=== PATIENT | female | born 1975 | race Caucasian/White ===

== ENCOUNTER 2020-06-04 01:11 | Emergency (ER) | payer SELFPAY ==
[~2020-06-04] VITALS: Ht 157.5 cm; Wt 95.3 kg
--- NOTE | 2020-06-04 01:12 | NUR ---
PT AAOX4. AMBULATORY WITH STEADY GAIT. C/O RECENTLY DC FROM [facility] ER, DX UTI, C/O BACK PAIN AROUND THE SPINE AREA. PLACED IN BED 1 ON MONITOR AND PULSE OX. VSS.
[2020-06-04] MEDS ORDERED: HYDROMORPHONE 1 MG/1 ML DISP.SYRIN ONE (01:57)
[2020-06-04] MEDS ORDERED: HYDROMORPHONE 1 MG/1 ML DISP.SYRIN IM ONE (02:00)
--- NOTE | 2020-06-04 02:00 | NUR ---
RAD AT BED SIDE
[2020-06-04] MEDS ORDERED: HYDR-3976 GT (02:14)
--- NOTE | 2020-06-04 05:31 | NUR ---
Patient discharged to home in stable condition. Written and verbal after care instructions given. Patient verbalizes understanding of instruction and RX. Pt told to follow up with PMD.
[2020-06-04 05:33] VITALS: BP 115/73
== END 2020-06-04 05:34 | disposition home or self-care (01) ==
LOC: ER 01:18
DX: M54.5 Low back pain (principal); G89.29 Other chronic pain
CPT/HCPCS: 72110; 96372; 99283; J1170

== ENCOUNTER 2021-03-20 15:24 | Emergency (ER) | payer SELFPAY ==
[~2021-03-20] VITALS: Ht 152.4 cm; Wt 86.2 kg
[~2021-03-20 15:24] MED LIST: HYDR-3976 GT
--- NOTE | 2021-03-20 15:40 | NUR ---
PT BIBSELF FROM HOME C/O BACK PAIN SINCE LAST NIGHT. PT DENIES N/V/D OR DIZZINESS. PT A/OX4. TOLERATING R/A WELL WITH NO SOB.
--- NOTE | 2021-03-20 15:51 | NUR ---
DR BORREGO AT PT'S BEDSIDE
[2021-03-20] MEDS ORDERED: MORPHINE SULFATE INJ 2 MG/ML DISP.SYRIN IV ONE (16:30)
[2021-03-20] MEDS ORDERED: MORPHINE SULFATE INJ 2 MG/ML DISP.SYRIN ONE (16:33)
--- NOTE | 2021-03-20 16:44 | NUR ---
RFA #20G S/L PATENT AND INTACT. ADMINISTERED MORPHINE 2MG IVP ORDERED FOR PAIN
--- NOTE | 2021-03-20 16:45 | NUR ---
PT TAKEN TO CT VIA [facility]
[2021-03-20 18:16] VITALS: BP 118/87
--- NOTE | 2021-03-20 18:16 | NUR ---
The patient is alert and oriented x4. Denies pain. In room air and denies SOB. Respiration regular and unlabored. IV removed. Catheter intact and site benign. Pressure and 4x4 applied to site. No bleeding noted.Patient discharged to home in stable condition. Written and verbal after care instructions given. Patient verbalizes understanding of instruction.
== END 2021-03-20 18:17 | disposition home or self-care (01) ==
LOC: ER 15:26
DX: G89.29 Other chronic pain (principal); M54.9 Dorsalgia, unspecified; R42 Dizziness and giddiness
CPT/HCPCS: 72131; 96374; 99284; J2270

== ENCOUNTER 2021-11-27 17:12 | Emergency (ER) | payer SELFPAY ==
[~2021-11-27] VITALS: Ht 157.5 cm; Wt 81.6 kg
[2021-11-27 17:15] VITALS: BP 176/92
== END 2021-11-27 18:18 | disposition home or self-care (01) ==
LOC: ER 17:17
DX: G89.29 Other chronic pain (principal); M54.50 Low back pain, unspecified

== ENCOUNTER 2023-12-06 01:11 | Emergency (ER) | payer MEDICAID ==
[~2023-12-06] VITALS: Ht 154.9 cm; Wt 70.8 kg
[2023-12-06 02:10] VITALS: BP 154/94; TEMP 98; O2SAT 97
[2023-12-06] MEDS ORDERED: KETOROLAC TROMETHAMINE INJ 30 MG/ML VIAL ONE (03:16)
[2023-12-06] MEDS: KETOROLAC TROMETHAMINE INJ 30 MG/ML VIAL IV ONE (03:19)
== END 2023-12-06 04:20 | disposition left against medical advice (07) ==
LOC: ER 01:14
DX: S20.212A Contusion of left front wall of thorax, initial encounter (principal); M25.461 Effusion, right knee; M25.561 Pain in right knee; I10 Essential (primary) hypertension; V43.92XA Unspecified car occupant injured in collision with other type car in traffic accident, initial encounter; Y93.89 Activity, other specified; Y92.488 Other paved roadways as the place of occurrence of the external cause; Y99.8 Other external cause status
CPT/HCPCS: 99283; 96374; J1885

== ENCOUNTER 2024-04-01 19:20 | Emergency (ER) | payer MEDICAID, OTHER ==
[~2024-04-01] VITALS: Ht 154.9 cm; Wt 79.4 kg
[2024-04-01 21:18] VITALS: TEMP 98.5
[2024-04-01 21:41] LABS: BASOPHILS # (AUTO) 0.1 K/uL (0.0-0.2); BASOPHILS % (AUTO) 0.9 % (0.0-2.0); EOSINOPHILS # (AUTO) 0.1 K/uL (0.0-0.7); EOSINOPHILS % (AUTO) 0.8 % (0.0-6.0); HEMATOCRIT 28 % (33-45); HEMOGLOBIN 9.2 g/dL (11.5-14.8); LYMPHOCYTES # (AUTO) 1.7 K/uL (0.8-4.8); LYMPHOCYTES % (AUTO) 18.1 % (20.0-44.0); MEAN CORPUSCULAR HEMOGLOBIN 22 PG (26.0-33.0); MEAN CORPUSCULAR HGB CONC 32 g/dl (31.0-36.0); MEAN CORPUSCULAR VOLUME 67 fL (82-100); MONOCYTES # (AUTO) 0.9 K/uL (0.1-1.30); MONOCYTES % (AUTO) 9.9 % (2.0-12.0); NEUTROPHILS # (AUTO) 6.4 K/uL (1.8-8.9); NEUTROPHILS % (AUTO) 70.3 % (43.0-81.0); PLATELET COUNT (AUTO) 485 K/uL (150-450); RED BLOOD CELL COUNT(AUTO) 4.26 MIL/uL (4.0-5.2); RED CELL DISTRIBUTION WIDTH 19.6 % (11.5-15.0); WHITE BLOOD COUNT (AUTO) 9.2 K/uL (4.3-11.0)
[2024-04-01 21:50] LABS: ERYTHROCYTE SEDIMENTATION RATE 43 MM/HR (0-30)
[2024-04-01 21:51] LABS: C-REACTIVE PROTEIN 0.94 mg/dL (0.0-0.30)
[2024-04-01 21:52] LABS: CALCIUM, SERUM 8.7 mg/dL (8.5-10.1); CREATININE 0.6 mg/dL (0.6-1.3); POTASSIUM 3.6 mmol/L (3.5-5.1)
[2024-04-01] MEDS: CEFAZOLIN 2 GM in IV D5W 100 ML IV ONE (22:23)
[2024-04-01] MEDS ORDERED: KETOROLAC TROMETHAMINE 15 MG/ML VIAL ONE (22:27)
[2024-04-01] MEDS ORDERED: CEPHALEXIN MONOHYDRATE 500 MG CAPSULE PO ONE (22:27)
[2024-04-01] MEDS: CEPHALEXIN MONOHYDRATE 500 MG CAPSULE PO ONE (22:32)
[2024-04-01] MEDS: KETOROLAC TROMETHAMINE 15 MG/ML VIAL IV ONE (22:32)
[2024-04-01 23:07] LABS: EOSINOPHILS % (MANUAL) 1 % (0-4); LYMPHOCYTES % (MANUAL) 16 % (16-48); MONOCYTES % (MANUAL) 7 % (0-11.0); NEUTROPHILS % (MANUAL) 76 (42-76)
[2024-04-01 23:08] LABS: ANISOCYTOSIS 1+; HYPOCHROMASIA 1+; PLATELET ESTIMATE ADEQUATE
[2024-04-01] MEDS ORDERED: TDAP [DIPH/PERTUSSIS/TET] 0.5 ML VIAL IM ONE (23:25)
[2024-04-01] MEDS: TDAP [DIPH/PERTUSSIS/TET] 0.5 ML VIAL IM ONE (23:30)
[2024-04-02] MEDS ORDERED: CEPH-570 PO (00:04)
[2024-04-02] MEDS ORDERED: KETO10TA2 PO (00:04)
[2024-04-02] MEDS: BACITRACIN ZINC OINT PACKET 1 EA PACKET TP ONE (00:10)
[2024-04-02 00:11] VITALS: BP 131/74; O2SAT 99
== END 2024-04-02 00:12 | disposition home or self-care (01) ==
LOC: ER 19:23
DX: S60.351A Superficial foreign body of right thumb, initial encounter (principal); I10 Essential (primary) hypertension; W22.8XXA Striking against or struck by other objects, initial encounter; Y93.89 Activity, other specified; Y92.89 Other specified places as the place of occurrence of the external cause; Y99.8 Other external cause status
CPT/HCPCS: 99284; 96374; 90471; 90715; 73140; 85025; 80048; 85652; 36415; 86140; 85007; J1885; J0690; J7060

== ENCOUNTER 2024-12-26 22:51 | Emergency (ER) | payer OTHER, MEDICAID ==
[~2024-12-26] VITALS: Ht 152.4 cm; Wt 64.9 kg
[~2024-12-26 22:51] MED LIST changes: +CEPH-570 PO; +KETO10TA2 PO
[2024-12-26 23:20] VITALS: BP 140/80; TEMP 98.3; O2SAT 98
[2024-12-26] MEDS ORDERED: CYCLOBENZAPRINE 10 MG TABLET ONE (23:47)
[2024-12-26] MEDS ORDERED: KETO10TA2 PO (23:47)
[2024-12-26] MEDS ORDERED: CYCL5TAB PO (23:47)
[2024-12-26] MEDS ORDERED: KETOROLAC TROMETHAMINE INJ 30 MG/ML VIAL ONE (23:47)
[2024-12-26] MEDS: CYCLOBENZAPRINE 10 MG TABLET PO ONE (23:54)
[2024-12-26] MEDS: KETOROLAC TROMETHAMINE INJ 30 MG/ML VIAL IM ONE (23:54)
== END 2024-12-26 23:56 | disposition home or self-care (01) ==
LOC: ER 22:56
DX: M54.50 Low back pain, unspecified (principal); I10 Essential (primary) hypertension; G89.29 Other chronic pain
CPT/HCPCS: 99283; 96372; J1885